=== PATIENT | male | born 1985 | race Caucasian/White ===

== ENCOUNTER 2017-11-20 02:07 | Emergency (ER) | payer OTHER ==
[~2017-11-20] VITALS: Ht 177.8 cm; Wt 73.0 kg
[2017-11-20 02:12] VITALS: BP 134/91
== END 2017-11-20 03:00 | disposition left against medical advice (07) ==
LOC: ER 02:07
DX: R10.9 Unspecified abdominal pain (principal); Z53.21 Procedure and treatment not carried out due to patient leaving prior to being seen by health care provider